=== PATIENT | female | born 1995 | race Caucasian/White ===

== ENCOUNTER 2020-06-25 17:20 | Emergency (ER) | payer OTHER ==
[~2020-06-25] VITALS: Ht 154.9 cm; Wt 68.0 kg
[2020-06-25] MEDS ORDERED: ACID REDUCER20 M1 PO (17:31)
== END 2020-06-25 23:01 | disposition home or self-care (01) ==
LOC: ER 17:20
DX: R51.9 Headache, unspecified (principal); B96.0 Mycoplasma pneumoniae [M. pneumoniae] as the cause of diseases classified elsewhere

== ENCOUNTER 2025-07-17 11:00 | Day surgery (SDC) | payer OTHER ==
[2025-07-16 13:33] LABS: BASO % 0.5 % (0.1-1.2); EOS # 0.19 (0.04-0.54); EOS % 2.0 % (0.7-7.0); LYMPH # 1.64 (1.18-3.74); LYMPH % 17.2 % (19.3-53.1); MEAN PLATELET VOLUME 11.30 fl (9.4-12.4); MONO # 0.47 (0.24-0.82); MONO % 4.9 % (4.7-12.5); NEUT # 7.17 (1.56-6.13); NEUT % 75.1 % (34.0-71.1); RED CELL DISTRIBUTION WIDTH 11.4 % (11.6-14.4)
[2025-07-16 13:50] LABS: INR 0.99
[2025-07-16 14:12] LABS: ALT/SGPT 67.0 U/L (12-78); AST/SGOT 36.0 U/L (15-37); BILIRUBIN TOTAL 0.58 mg/dL (0.3-1.2); BUN CREA RATIO 21.0 (7.0-25.0); CREATININE SERUM 0.61 mg/dL (0.55-1.02); GFR 114.4; GLOBULINA 3.2 G/DL (2.4-3.5); GLUCOSE FASTING 82.0 mg/dL (65-100); OSMOLALITY SERUM 279.0 MOSM/KG (275-295)
[~2025-07-17 11:00] MED LIST: ACID REDUCER20 M1 PO; PRENATABS FA T1 EACH PO
[2025-07-17] MEDS ORDERED: CEFOXITIN SODIUM 2,000 MG VIAL IV ONE ×2 (14:37→16:45)
[2025-07-17] MEDS ORDERED: POVIDONE-IODINE 118 ML BOTT TOP ONE ×2 (16:42→16:45)
[2025-07-17] MEDS ORDERED: PROMETHAZINE HCL 50 MG/ML AMPUL IM ONE (17:00)
== END 2025-07-17 21:00 | disposition home or self-care (01) ==
LOC: CIR.AMB 11:00
PROVIDERS: ATTEND Obstetrics & Gynecology Maternal & Fetal Medicine
DX: O02.1 Missed abortion (principal)